=== PATIENT | female | born 1980 | race Caucasian/White ===

== ENCOUNTER 2019-06-28 22:46 | Emergency (ER) | payer SELFPAY ==
[2019-06-28] MEDS: KETOROLAC TROMETHAMINE INJ 30 MG/ML VIAL IM ONE (22:52)
[2019-06-28] MEDS ORDERED: HYDROmorphone HCL INJ 2 MG/ML VIAL ONE (23:05)
[2019-06-28] MEDS: HYDROmorphone HCL INJ 2 MG/ML VIAL IV ONE (23:14)
--- NOTE | 2019-06-28 23:16 | ED.PDOC ---
History of Present Illness - General Chief Complaint: Abdominal Pain Stated Complaint: lower abdomen pain Time Seen by Provider: 06/28/19 22:48 Source: patient Exam Limitations: no limitations - History of Present Illness Initial Comments: the patient's 38-year-old female presenting to the emergency room secondary to severe onset acute abdominal pain just above the pubic bone. It occurred while she was at rest. No sneezing, coughing, straining to cause it. She denies any constipation or diarrhea. No recent fever. She was feeling just fine prior. She rates as 10 out of 10. It does feel better sitting upright. She does have difficulty relaxing her abdominal muscles when lying flat. She does have some knotted tissue just above her pubic bone, this may simply be flexed musculature but could also be hernia tissue. I do not see any peristalsis-like with bowel on ultrasound. No vomiting. No previous episodes like this. No history of ovarian torsion or large ovarian cysts. Menses have been regular. No report of vaginal discharge. Timing/Duration: 1/2 hour Severity: severe Improving Factors: nothing Worsening Factors: nothing Associated Symptoms: denies symptoms Allergies/Adverse Reactions: Allergies NO KNOWN ALLERGY Allergy (Verified 06/28/19 23:13) Home Medications: Ambulatory Orders Tramadol HCl 50 mg PO Q8HR PRN #20 tab 06/29/19 Review of Systems - Review of Systems Constitutional: States: no symptoms reported EENTM: States: no symptoms reported Respiratory: States: no symptoms reported Cardiology: States: no symptoms reported Gastrointestinal/Abdominal: States: abdominal pain Genitourinary: States: no symptoms reported Musculoskeletal: States: no symptoms reported Skin: States: no symptoms reported Neurological: States: no symptoms reported Endocrine: States: no symptoms reported All other Systems: No Change from Baseline Past Medical History (General) - Patient Medical History Hx Stroke: No Hx Congestive Heart Failure: No Hx Diabetes: No Hx MRSA: No Surgical History: cholecystectomy - Vaccination History Hx Influenza Vaccination: No Hx Pneumococcal Vaccination: No - Social History Hx Tobacco Use: Yes - Female History Patient is a Female of Child Bearing Age (10 -59 yrs old): Yes Patient : No Family Medical History - Family History Mother Living Status: Still Living Hx Cardiac Disease: Yes Physical Exam - Physical Exam General Appearance: Alert, Anxious, Obvious distress - the patient is fairly writhing in pain. Eye Exam: bilateral normal Ears, Nose, Throat: hearing grossly normal, normal ENT inspection Neck: full range of motion, supple Respiratory: lungs clear, normal breath sounds, no respiratory distress, no accessory muscle use Cardiovascular/Chest: normal peripheral pulses, regular rate, rhythm, no edema Peripheral Pulses: radial,right: 2+, radial,left: 2+ Gastrointestinal/Abdominal: guarding - abdomen feels less painful with herlegs flexed at the hip., other - see history of present illness. Pain extends from just above the pubic bone to about an inch and a half below the umbilicus. There may be a little bit more to the left than the right. 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, alert, oriented x 3 Skin Exam: normal color Comments: Vital Signs - 24 hr 06/28/19 22:47 Temperature 98.2 F Pulse Rate [ 80 Right] Respiratory 22 Rate Blood Pressure 158/112 [Left Arm] O2 Sat by Pulse 96 Oximetry Vital Signs - 24 hr 06/28/19 06/28/19 06/29/19 22:47 23:30 00:07 Temperature 98.2 F Pulse Rate [ 80 83 76 Right] Respiratory 22 16 Rate Blood Pressure 158/112 155/89 139/80 [Left Arm] O2 Sat by Pulse 96 95 94 L Oximetry 06/29/19 06/29/19 06/29/19 00:30 01:34 02:00 Temperature Pulse Rate [ 72 77 79 Right] Respiratory 16 Rate Blood Pressure 118/86 138/73 144/96 [Left Arm] O2 Sat by Pulse 92 L 95 96 Oximetry 06/29/19 06/29/19 06/29/19 02:59 03:58 05:00 Temperature Pulse Rate [ 78 80 75 Right] Respiratory Rate Blood Pressure 117/76 123/68 116/79 [Left Arm] O2 Sat by Pulse 96 97 95 Oximetry 06/29/19 06:00 Temperature Pulse Rate [ 70 Right] Respiratory Rate Blood Pressure 127/91 [Left Arm] O2 Sat by Pulse 96 Oximetry Progress - Progress Progress: 06/29/19 00:34 the patient presented with severe central acute abdominal pain. Initial differential included a low ventral hernia, ovarian torsion, kidney stones, hemorrhagic cysts, etc. The patient's pain was significantly improved with a dose of Dilaudid. To this point it has not returned. Vital signs have remained stable. CT scan of abdomen and pelvis seems to indicate most likely source to be a ruptured ovarian cyst. The patient will be monitored here over the next 4- 5 hours. Obviously if the pain comes back or we see any evidence of continued significant bleeding by symptoms or vital signs, then additional measures including repeat labs and possibly repeat imaging versus transfer for higher level of care would be warranted. For now she appears to be doing well. We will continue to monitor. Plan on repeat draw a CBC in approximately 5 AM. 06/29/19 06:08 the patient has been resting comfortably. Vital signs have remained stable. Hemoglobin and hematocrit have remained stable when given a liter of IV fluid that she has had. The patient will be discharged home. ER warnings were given. She is to follow-up with her primary care doctor later this week. - Results/Orders Results/Orders: CT scan of the abdomen and pelvis shows what is likely a small amount of hemorrhage in the pelvis most consistent with a ruptured ovarian cyst. No evidence of obvious other acute pathology. Laboratory Results - last 24 hr 06/28/19 06/28/19 06/28/19 02:00 23:04 23:04 WBC 13.5 H RBC 4.13 L Hgb 13.7 Hct 40.4 MCV 97.9 MCH 33.1 H MCHC 33.8 RDW 13.7 Plt Count 344 MPV 9.4 Absolute Neuts (auto) 6.40 Absolute Lymphs (auto) 4.50 H Absolute Monos (auto) 1.30 H Absolute Eos (auto) 1.00 H Absolute Basos (auto) 0.20 H Neutrophils % 47.6 Lymphocytes % 33.7 Monocytes % 9.8 H Eosinophils % 7.6 H Basophils % 1.3 Sodium 139 Potassium 4.1 Chloride 106 Carbon Dioxide 27 Anion Gap 10.1 L BUN 16 Creatinine 0.64 BUN/Creatinine Ratio 25.0 H Random Glucose 112 H Serum Osmolality 279.5 Lactic Acid Calcium 9.3 Total Bilirubin 0.3 AST 24 ALT 18 Alkaline Phosphatase 47 Serum Total Protein 7.1 Albumin 4.3 Globulin 2.8 Albumin/Globulin Ratio 1.5 Amylase 102 H Serum HCG, Qual Urine Color Urine Appearance Urine pH Ur Specific [place] Urine Protein Urine Glucose (UA) Urine Ketones Urine Blood Urine Nitrite Urine Bilirubin Urine Urobilinogen Ur Leukocyte Esterase Urine RBC Urine WBC Ur Epithelial Cells Urine Bacteria Urine Opiates Screen Negative Urine Barbiturates Negative Ur Phencyclidine Scrn Negative U Amphetamin/Meth Scrn Positive H U Benzodiazepines Scrn Negative U Cocaine Metab Screen Negative U Cannabinoids Screen Negative 06/28/19 06/28/19 06/29/19 23:04 23:04 02:00 WBC RBC Hgb Hct MCV MCH MCHC RDW Plt Count MPV Absolute Neuts (auto) Absolute Lymphs (auto) Absolute Monos (auto) Absolute Eos (auto) Absolute Basos (auto) Neutrophils % Lymphocytes % Monocytes % Eosinophils % Basophils % Sodium Potassium Chloride Carbon Dioxide Anion Gap BUN Creatinine BUN/Creatinine Ratio Random Glucose Serum Osmolality Lactic Acid 1.1 Calcium Total Bilirubin AST ALT Alkaline Phosphatase Serum Total Protein Albumin Globulin Albumin/Globulin Ratio Amylase Serum HCG, Qual Negative Urine Color Yellow Urine Appearance Clear Urine pH 6.0 Ur Specific [place] <= 1.005 Urine Protein Negative Urine Glucose (UA) Negative Urine Ketones Negative Urine Blood Negative Urine Nitrite Negative Urine Bilirubin Negative Urine Urobilinogen 0.2 Ur Leukocyte Esterase Negative Urine RBC 0 Urine WBC 0 Ur Epithelial Cells 0 Urine Bacteria 0 Urine Opiates Screen Urine Barbiturates Ur Phencyclidine Scrn U Amphetamin/Meth Scrn U Benzodiazepines Scrn U Cocaine Metab Screen U Cannabinoids Screen 06/29/19 05:21 WBC 14.0 H RBC 3.85 L Hgb 12.8 Hct 37.6 MCV 97.7 MCH 33.3 H MCHC 34.1 RDW 13.8 Plt Count 306 MPV 9.5 Absolute Neuts (auto) 7.80 H Absolute Lymphs (auto) 3.80 H Absolute Monos (auto) 1.60 H Absolute Eos (auto) 0.60 H Absolute Basos (auto) 0.20 H Neutrophils % 55.9 Lymphocytes % 26.9 Monocytes % 11.6 H Eosinophils % 4.4 Basophils % 1.2 Sodium Potassium Chloride Carbon Dioxide Anion Gap BUN Creatinine BUN/Creatinine Ratio Random Glucose Serum Osmolality Lactic Acid Calcium Total Bilirubin AST ALT Alkaline Phosphatase Serum Total Protein Albumin Globulin Albumin/Globulin Ratio Amylase Serum HCG, Qual Urine Color Urine Appearance Urine pH Ur Specific [place] Urine Protein Urine Glucose (UA) Urine Ketones Urine Blood Urine Nitrite Urine Bilirubin Urine Urobilinogen Ur Leukocyte Esterase Urine RBC Urine WBC Ur Epithelial Cells Urine Bacteria Urine Opiates Screen Urine Barbiturates Ur Phencyclidine Scrn U Amphetamin/Meth Scrn U Benzodiazepines Scrn U Cocaine Metab Screen U Cannabinoids Screen Departure - Departure Clinical Impression: Ruptured ovarian cyst Disposition: Discharge to Home or Self Care Condition: Fair Departure Forms: ED Discharge - Pt. Copy, Patient Portal Self Enrollment Instructions: Ovarian Cyst (DC) Diet: regular diet Activity: increase activity as tolerated Referrals: oJsh Delacruz III, MD [Primary Care Provider] - 1-2 Weeks Prescriptions: Tramadol HCl 50 mg PO Q8HR PRN #20 tab PRN Reason: Moderate Pain Home Medications: Ambulatory Orders Tramadol HCl 50 mg PO Q8HR PRN #20 tab 06/29/19 Additional Instructions: the patient is a 38-year-old female presenting to the emergency room secondary to severe abdominal pain that appears to been caused by an ovarian cyst that ruptured and hemorrhaged a small amount. The patient has been monitored for more than 6 hours and vital signs and hemoglobin and hematocrit have remained stable. Pain has subsided. The patient will be allowed to go home. I do recommend that she follow-up with her primary care doctor before her trip later this week. She needs to maintain pelvic rest and avoid any high impact activities in order to prevent any rebleeding. She will be written for tramadol for as needed use. avoid aspirin use in the near future. ER warnings were given for any significant worsening.
[2019-06-28] MEDS: SODIUM CHLORIDE 0.9% 1000ML 1,000 ML IVS ONE (23:40)
--- NOTE | 2019-06-29 00:26 | CT ---
PROCEDURE: Abdomen/Pelvis w/Contrast CLINICAL HISTORY: acute lower central abd pain TECHNIQUE: Contiguous axial images obtained through the abdomen and pelvis following the uneventful administration of IV contrast. Coronal and sagittal reformatted images were provided. This exam was performed according to our departmental dose-optimization program, which includes automated exposure control, adjustment of the mA and/or kV according to patient size and/or use of iterative reconstruction technique. COMPARISON: None available for comparison. FINDINGS: Lung bases: Patchy bibasilar groundglass opacities. Liver: Unremarkable Gallbladder and biliary system: Prior cholecystectomy. Pancreas: Unremarkable Spleen: Unremarkable Adrenals: Unremarkable Kidneys: Normal renal cortical enhancement. No calculi. No hydronephrosis. Bowel: Moderate stool. No obstruction. No appreciable mucosal thickening. Appendix: Normal caliber appendix. No findings to suggest acute appendicitis. Urinary bladder: Unremarkable Reproductive: 2.5 cm and 2 cm right ovarian cysts. The uterus and left ovary are unremarkable as visualized. Lymph nodes: No pathologically enlarged lymph nodes. Peritoneum: Small amount of free fluid within the cul-de-sac. The density is higher than that of simple fluid. No free air. Vessels: No abdominal aortic aneurysm. Abdominal wall: Tiny fat-containing umbilical hernia. Bones: Unremarkable IMPRESSION: 1. 2.5 cm and 2 cm benign appearing right ovarian cysts. No follow-up imaging is recommended. Reference: J Am Bradford Radiol 2013;10:[id number] 2. Small amount of hemorrhagic fluid within the cul-de-sac suggesting recent/partial cyst rupture. 3. Patchy bibasilar groundglass opacities (atelectasis and/or infiltrate). 4. Other findings as above. Electronically signed by: Vimal Sanchez MD 06/29/2019 12:25 AM [facility]
[2019-06-29 06:32] VITALS: BP 130/87; TEMP 98.4; O2SAT 95
== END 2019-06-29 06:27 | disposition home or self-care (01) ==
LOC: ER 22:46
DX: N83.201 Unspecified ovarian cyst, right side (principal); Z87.891 Personal history of nicotine dependence
CPT/HCPCS: 74177; 80053; 80307; 81001; 82150; 83605; 84703; 85025; J1170; J1885; J7030

== ENCOUNTER 2020-05-28 11:54 | Emergency (ER) | payer SELFPAY ==
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
[2020-05-28 12:14] VITALS: BP 146/88; TEMP 98.5; O2SAT 98
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
== END 2020-05-28 12:40 | disposition home or self-care (01) ==
LOC: ER 11:54
DX: S63.91XA Sprain of unspecified part of right wrist and hand, initial encounter (principal); Y04.0XXA Assault by unarmed brawl or fight, initial encounter; Y92.009 Unspecified place in unspecified non-institutional (private) residence as the place of occurrence of the external cause; Z87.891 Personal history of nicotine dependence